=== PATIENT | female | born 1990 | race Two or more races ===

== ENCOUNTER 2023-10-07 16:53 | Emergency (ER) | payer OTHER ==
[~2023-10-07] VITALS: Ht 165.1 cm; Wt 82.0 kg
[2023-10-07 16:59] VITALS: O2SAT 99
[2023-10-07] MEDS ORDERED: LACTATED RINGERS 1,000 ML IV SCH (17:30)
[2023-10-07 17:46] LABS: BASOPHILS % 0.9 % (0.0-2.0); EOSINOPHILS % 0.6 % (0.0-5.0); HEMATOCRIT. 44.3 % (36.0-48.0); HEMOGLOBIN. 14.9 g/dL (12.0-16.0); LYMPHOCYTES % 11.5 % (20.0-50.0); MEAN CORPUSCULAR HEMOGLOBIN 31.4 pg (28.0-32.0); MEAN CORPUSCULAR HGB CONC 33.5 g/dL (31.0-37.0); MEAN CORPUSCULAR VOLUME 93.7 fL (81.0-99.0); MEAN PLATELET VOLUME 11.3 fl (7.4-10.4); MONOCYTES % 6.7 % (2.0-8.0); NEUTROPHILS % 80.3 % (40.0-76.0); PLATELET 185 x1000/uL (130-400); RED BLOOD CELL COUNT 4.73 mill/uL (4.2-5.4); RED CELL DISTRIBUTION WIDTH 12.4 % (11.6-14.6); WHITE BLOOD COUNT 7.4 x1000/uL (4.5-11.0)
[2023-10-07 17:52] LABS: CHLORIDE 108 mEq/L (98-107); POTASSIUM 3.8 mEq/L (3.5-5.1); SODIUM 143 mEq/L (136-145)
[2023-10-07 17:53] LABS: CARBON DIOXIDE 24 mEq/L (21-32)
[2023-10-07 17:54] LABS: CALCIUM 9.7 mg/dL (8.7-10.4)
[2023-10-07 17:58] LABS: CREATININE 0.9 mg/dL (0.6-1.0); GLUCOSE 102 mg/dL (70-105); UREA NITROGEN BLOOD 7 mg/dL (9-23)
[2023-10-07 18:02] LABS: HCG SCREEN NEGATIVE
[2023-10-07] MEDS: SODIUM CHLORIDE 0.9% 1,000 ML IV ONE (18:33)
[2023-10-07 19:28] VITALS: BP 122/65; PULSE 97; RESP 16; TEMP 98.7
== END 2023-10-07 19:31 | disposition home or self-care (01) ==
LOC: ER 17:16
DX: R55 Syncope and collapse (principal); F32.A Depression, unspecified
CPT/HCPCS: 99283; 96360; 80048; 84703; 85025; 36415; 93005; J7030